=== PATIENT | female | born 1945 | race Caucasian/White ===

== ENCOUNTER 2016-10-26 09:46 | Emergency (ER) | payer OTHER ==
[2016-10-26] MEDS ORDERED: NORMAL SALINE 1000 ML 1,000 ML IV PRN (10:18)
--- NOTE | 2016-10-26 10:24 | ER Document Report ---
ED General - General Chief Complaint: Syncope Stated Complaint: SYNCOPY Time seen by provider: 10:19 Mode of Arrival: Medic Information source: Patient, Relative Notes: 71-year-old female who had a witnessed syncopal episode this morning. The patient says she was standing up and felt herself becoming weak told family members were able to catch her as she fell. She did not strike the floor her head. Family reports that she was out for about 2 minutes and then was groggy and confused for about 5 minutes and then her mental status returned to normal. The patient has no prior history of seizures. Family did notice some faint tremors in both hands which she first went out. Patient is noted be orthostatic on arrival here and was treated with some 50 mL normal saline and 8 mg Zofran by EMS in route. The patient has a history of lung cancer treated with full rounds of chemotherapy most recently around was completed 2 days ago. Family reports that she typically we will nauseated for several days after the chemotherapy typically lies around the house. She lives in [place] and instead of her usual routine drove here after her chemotherapy has [place] the beach and be much more active than normal. Patient was also found to have a brain metastasis and was treated with radiation and subsequent surgery. Family reports that last check of her brain showed there to be no further cancer there and no progression of lung cancer and they think she may be getting radiation at some point in the near future. Patient reports no further nausea. Physical Exam: General: Alert, appears weak HEENT: Normocephalic. Atraumatic. PERRLA. Extraocular movements intact. Oropharynx clear. Dry mucous membranes Neck: Supple. Non-tender. No JVD no adenopathy no carotid bruits Respiratory: No respiratory distress. Clear and equal breath sounds bilaterally. Cardiovascular: Regular rate and rhythm. PMI not displaced Abdominal: Normal Inspection. Soft, non-tender. No distension. Normal Bowel Sounds. Back: Non-tender. No deformity or step off. Extremities: Extremity is all warm to plus pulses of cyanosis no edema no Homans sign Neurological: Speech clear mentation normal talent buyer strength 5 out of 5 equal both upper tremors motor function 5 out of 5 equal both lower extremities Psychological: Normal affect. Normal Mood. Skin: Warm. Dry. Normal color. - Related Data Allergies/Adverse Reactions: No Known Allergies Allergy (Unverified 10/26/16 11:15) Past Medical History - Social History Smoking Status: Current Every Day Smoker Family History: None - Past Medical History Cardiac Medical History: Reports: Hx Hypertension Malignancy Medical History: Reports: Hx Lung Cancer, Other - Brain metastasis reportedly surgically removed Past Surgical History: Reports: Hx Neurologic Surgery Review of Systems - Review of Systems Constitutional: Malaise, Weakness. denies: Chills, Fever EENT: denies: Ear pain, Throat pain, Mouth pain Cardiovascular: Syncope. denies: Chest pain, Dyspnea Respiratory: denies: Cough, Short of breath, Wheezing Gastrointestinal: Nausea. denies: Diarrhea, Blood in vomit, Black stools, Rectal bleeding Genitourinary: denies: Burning, Dysuria Female Genitourinary: Post menopausal Musculoskeletal: denies: Back pain, Leg swelling, Ankle swelling Skin: denies: Rash Hematologic/Lymphatic: denies: Swollen glands Neurological/Psychological: Weakness - Generalized. denies: Numbness Physical Exam - Vital signs Vitals: Temp Pulse Resp BP Pulse Ox 97.6 F 60 16 144/85 H 99 10/26/16 09:47 10/26/16 09:47 10/26/16 09:47 10/26/16 09:47 10/26/16 09:47 Course - Re-evaluation Re-evalutation: 10/26/16 14:47 Reevaluation shows patient to be feeling much better after IV fluids. Patient' s potassium and magnesium were supplemented and found no etiology for syncopal episode more concerning than orthostasis likely related to recent poor by mouth intake. Patient's family are eager for discharge and reports being very appreciative of their care. They will be discharged with copies of her workup here and disc showing CT scans of them take back with them to [place] - Vital Signs Vital signs: Temp Pulse Resp BP Pulse Ox 97.6 F 60 17 125/79 97 10/26/16 09:47 10/26/16 10:04 10/26/16 12:01 10/26/16 12:01 10/26/16 12:01 - Laboratory Result Diagrams: 10/26/16 10:58 10/26/16 10:58 Laboratory results interpreted by me: 10/26/16 10/26/16 10/26/16 10:58 10:58 12:55 RBC 2.96 L Hgb 10.0 L Hct 29.0 L MCV 98 H MCH 33.9 H RDW 18.1 H Seg Neutrophils % 88.2 H Lymphocytes % 11.2 L Monocytes % 0.2 L Absolute Monocytes 0.0 L Potassium 3.4 L Carbon Dioxide 19 L BUN 28 H Glucose 112 H Calcium 10.4 H Urine Blood SMALL H - Diagnostic Test Radiology reviewed: Image reviewed, Reports reviewed - EKG Interpretation by Me Additional EKG results interpreted by me: 10/26/16 14:47 EKG reviewed by myself shows sinus rhythm at 60 no acute changes Discharge - Discharge Clinical Impression: Hypokalemia, Hypomagnesemia Syncope Qualifiers: Syncope type: unspecified Qualified Code(s): R55 - Syncope and collapse Metastatic lung cancer (metastasis from lung to other site) Qualifiers: Laterality: unspecified laterality Qualified Code(s): C34.90 - Malignant neoplasm of unspecified part of unspecified bronchus or lung Condition: Stable Disposition: HOME, SELF-CARE Additional Instructions: Syncopal Episode Syncope (fainting or near-fainting) can occur from many different health problems. Or it can be a simple fainting spell requiring no treatment. It is safe for you to go home, but further evaluation will likely be necessary. Your work-up may include tests for internal bleeding, heart disease, medication problems, or near-strokes. Tests are not always required, however, depending on the nature of your problem. The warning signs of an impending faint include: dizziness, lightheadedness , nausea, hot flashes, tingling, and weakness. If this happens, lay down and put your feet up, then wait until all of these symptoms have passed before standing up again. If these episodes become recurrent, or if you develop chest pain, heart palpitations, mental confusion, blurred vision, or headache, then you should call the physician, or go to the emergency room. Follow-up with your doctor when you return home. May return to emergency department whenever needed for any further problems
[2016-10-26 11:11] LABS: ABSOLUTE LYMPHOCYTES (AUTO) 0.8 10^3/uL (0.5-4.7); ABSOLUTE NEUT (AUTO) 6.5 10^3/uL (1.7-8.2); BASOPHILS % (AUTO) 0.1 % (0-2); EOSINOPHILS % (AUTO) 0.3 % (0-6); LYMPHOCYTES % (AUTO) 11.2 % (13-45); MEAN CORPUSCULAR HEMOGLOBIN 33.9 pg (27.0-33.4); MEAN CORPUSCULAR HGB CONC 34.6 g/dL (32.0-36.0); MEAN CORPUSCULAR VOLUME 98 fl (80-97); MONOCYTES % (AUTO) 0.2 % (3-13); RED BLOOD COUNT 2.96 10^6/uL (3.72-5.28); RED CELL DISTRIBUTION WIDTH 18.1 % (11.5-14.0); SEGMENTED NEUTROPHILS % (AUTO) 88.2 % (42-78); WHITE BLOOD COUNT 7.4 10^3/uL (4.0-10.5)
[2016-10-26 11:28] LABS: ALANINE AMINOTRANSFERASE 35 U/L (9-52); ALBUMIN 4.4 g/dL (3.5-5.0); ALKALINE PHOSPHATASE 62 U/L (38-126); ANION GAP 14 (5-19); ASPARTATE AMINO TRANSFERASE 25 U/L (14-36); BILIRUBIN,DIRECT 0.2 mg/dL (0.0-0.4); BILIRUBIN,TOTAL 0.7 mg/dL (0.2-1.3); BLOOD UREA NITROGEN 28 mg/dL (7-20); CALCIUM 10.4 mg/dL (8.4-10.2); CARBON DIOXIDE 19 mmol/L (22-30); CHLORIDE 105 mmol/L (98-107); CREATINE KINASE 39 U/L (30-135); CREATININE RESULT 0.84 mg/dL (0.52-1.25); GLUCOSE 112 mg/dL (75-110); MAGNESIUM 1.6 mg/dL (1.6-2.3); POTASSIUM 3.4 mmol/L (3.6-5.0); SODIUM 138.2 mmol/L (137-145); TOTAL PROTEIN 6.7 g/dL (6.3-8.2)
[2016-10-26 11:40] LABS: CREATINE KINASE MB 0.51 ng/mL (<4.55)
[2016-10-26 11:44] LABS: TROPONIN I < 0.012 ng/mL
[2016-10-26] MEDS ORDERED: POTASSI CL 20 MEQ/50 ML RIDER 50 ML IV ONE (11:58)
[2016-10-26] MEDS ORDERED: MAGNESIUM SULFATE/D5W 100 ML IV SCH (12:00)
[2016-10-26 13:24] LABS: APPEARANCE,URINE CLEAR; BILIRUBIN,URINE NEGATIVE (NEGATIVE); GLUCOSE, URINE NEGATIVE (NEGATIVE); KETONES,URINE NEGATIVE (NEGATIVE); LEUKOCYTE ESTERASE,URINE NEGATIVE (NEGATIVE); NITRITE,URINE NEGATIVE (NEGATIVE); PROTEIN,URINE NEGATIVE (NEGATIVE); URINE SPECIFIC GRAVITY 1.008; UROBILINOGEN,URINE NEGATIVE mg/dL (<2.0)
[2016-10-26 15:28] VITALS: BP 141/84
--- NOTE | 2016-10-26 16:28 | EKG REPORT ---
SEVERITY:- ABNORMAL ECG - SINUS RHYTHM BORDERLINE LEFT AXIS DEVIATION CONSIDER ANTEROSEPTAL INFARCT BORDERLINE T ABNORMALITIES, INFERIOR LEADS : Confirmed by: Frederick Bello MD 26-Oct-2016 16:26:58
== END 2016-10-26 15:41 | disposition home or self-care (01) ==
LOC: ER 09:46
DX: E87.6 Hypokalemia (principal); E83.42 Hypomagnesemia; R55 Syncope and collapse; R53.1 Weakness; C34.90 Malignant neoplasm of unspecified part of unspecified bronchus or lung; R11.0 Nausea; F17.200 Nicotine dependence, unspecified, uncomplicated; I10 Essential (primary) hypertension; Z85.841 Personal history of malignant neoplasm of brain
CPT/HCPCS: 93005; 99285; 96361; 96365; 96366; 96368; 36415; 82553; 82550; 83735; 85025; 80053; 81001; 84484; 70450; 71275; 93010; J3475; J3480; J7030